=== PATIENT | male | born 1945 | race Two or more races ===

== ENCOUNTER 2017-05-31 06:16 | Day surgery (SDC) | payer MEDICARE, MEDICAID | END 2017-05-31 09:45 | disposition home or self-care (01) | LOC: DS 06:16 | PROVIDERS: ATTEND Surgery | DX: K62.1 Rectal polyp (principal); K63.89 Other specified diseases of intestine; E11.9 Type 2 diabetes mellitus without complications; E78.00 Pure hypercholesterolemia, unspecified; F41.9 Anxiety disorder, unspecified; K21.9 Gastro-esophageal reflux disease without esophagitis; I10 Essential (primary) hypertension; N40.0 Benign prostatic hyperplasia without lower urinary tract symptoms; Z86.010 Personal history of colon polyps | CPT/HCPCS: 88305-TC; 88342; J2704 ==